=== PATIENT | female | born 1990 | race Caucasian/White ===

== ENCOUNTER 2020-08-29 12:18 | Emergency (ER) | payer SELFPAY ==
[2020-08-29 12:36] VITALS: BP 160/93; PULSE 98; RESP 17; TEMP 36.4; O2SAT 97; BMI 33.6
--- NOTE | 2020-08-29 12:50 | XR_ITS ---
EXAMINATION: XR FOOT, RIGHT CLINICAL INFORMATION: Injury over great toe. COMPARISON: None TECHNIQUE: AP, lateral, and oblique views of the right foot. FINDINGS: There is no visible fracture or bony abnormality involving the right great toe. The soft tissues are unremarkable. XR/XR foot RT min 3V IMPRESSION: Unremarkable right great toe exam.
--- NOTE | 2020-08-29 12:53 | ED_ITS ---
HPI - Extremity Injury (Lower) General Chief Complaint: Extremity Injury, Lower Stated Complaint: toe pain - work injury Time Seen by Provider: 08/29/20 12:48 Source: patient Mode of arrival: ambulatory Limitations: no limitations History of Present Illness HPI Narrative: Struck right foot on solid object 3 days ago at work. Continuing to have pain worsened with weight bearing. MD complaint: foot injury Onset (ago): day(s) Injury: Right: foot Type of Injury: blunt Place: work Severity: moderate Relieving factors: immobilization and rest Exacerbating factors: weight bearing, movement and palpation Context: direct blow Other symptoms: none Related Data Previous Rx's Medication Instructions Recorded ibuprofen 600 mg PO Q8H PRN #10 tab 08/29/20 Allergies Allergy/AdvReac Type Severity Reaction Status Date / Time pollen extracts [POLLEN] Allergy Unknown SNEEZE Unverified 07/24/20 16:14 sulfamethoxazole Allergy Unknown HIVES Unverified 07/24/20 16:14 [From Bactrim DS] trimethoprim Allergy Unknown HIVES Unverified 07/24/20 16:14 [From Bactrim DS] DUST Allergy Unknown SNEEZE Uncoded 07/24/20 16:14 Review of Systems Review of Systems: Yes all other systems are reviewed and are negative Constitutional: Constitutional: Reports no additional constitutional complaints, Denies body ache(s), Denies chills, Denies fever(s), Denies headache(s) and Denies weakness Eyes: Eyes: Reports no additional eye complaints and Denies change in vision ENT: Reports system reviewed and no additional complaints, except as documented, Denies dizziness, Denies headache(s), Denies nasal congestion, Denies nasal discharge and Denies neck pain Cardiovascular: Cardiovascular: Reports no additional cardiovascular complaints, Denies chest pain, Denies leg edema and Denies dyspnea Respiratory: Respiratory: Reports no additional respiratory complaints, Denies cough and Denies dyspnea Gastrointestinal: Gastrointestinal: Reports no additional gastrointestinal complaints, Denies abdominal pain, Denies diarrhea, Denies nausea and Denies vomiting Genitourinary: Genitourinary: Reports no additional female genitourinary complaints and Denies urinary incontinence Musculoskeletal: Musculoskeletal: Reports no additional musculoskeletal complaints, Denies back pain, Reports arthralgias, Reports joint swelling, Denies neck pain, Denies numbness and Denies tingling Integumentary/Breasts: Skin/Breast: Reports system reviewed and no additional complaints, except as docu and Denies rash Neurologic: Reports system reviewed and no additional complaints, except as documented, Denies Abnormal speech present, Denies dizziness, Denies headache(s), Denies numbness, Denies tingling and Denies weakness PMFSH Past Medical History Source: old records reviewed, obtained from family and nursing notes reviewed Medical History No known health problems Social History Social History Advance Directives: No Advance Directives Information Provided: Yes Physical Exam Vital Signs: Vital Signs: Vital Signs Temp Pulse Resp BP Pulse Ox 08/29/20 12:36 97.6 F 98 17 160/93 H 97 Body Mass Index 33.6 Const: General: cooperative, healthy appearing, comfortable and no acute distress Orientation/consciousness: patient oriented x3 Limitations: no limitations HENMT: Head: Yes normal to inspection Ears: hearing grossly normal bilaterally General nose exam: Normal external nose present Face and sinus: Yes normal facial exam Mouth: Normal oral and palatal mucosa present Throat: Yes posterior oropharynx normal Eyes: General: appearance normal, both eyes and all related structures Pupils: Equal, round and reactive pupils present Neck: Neck: Yes normal visual inspection Chest: Chest palpation & inspection: normal inspection of the chest Resp: Effort & Inspection: normal respiratory effort Auscultation: clear to auscultation bilaterally Cardio: Rate: regular rate Rhythm: regular rhythm Peripheral pulses: Peripheral pulses 2+ throughout GI: Inspection: Yes normal to inspection Palpation (GI): Soft to palpation and nontender Auscultation: normal bowel sounds Back/Spine/Pelvis: Thoracic/Lumbar Spine: thoracic and lumbar spine normal to inspection Skin: General skin exam: no rashes or lesions noted Neuro: General: patient oriented x3, no focal motor deficits and normal sensation to monofilament Cranial nerves: Yes Equal, round and reactive pu pils present Cognition (Neuro): normal cognition Speech: No Abnormal speech present Gait exam (Neuro): Normal gait present Motor exam (neuro): 5/5 motor strength present throughout Extrem: General: Yes normal to inspection Right lower extremity: normal to inspection, full ROM, normal capillary refill and foot Details: normal capillary refill, tenderness (dorsal/distal over base of great toe ) Location: of the dorsal foot and of the great toe, toes with normal ROM and no edema; no ecchymosis; no cyanosis, no edema and joint enlargement noted Course Course Course Narrative: Will check imaging 1330- X-ray negative. Likely sprain versus contusion. Patient was placed in a postoperative shoe for comfort. Reviewed worrisome signs and symptoms and when to return to the emergency department. Comfortable discharge home. MDM - Extremity Injury (Lower) MDM Narrative Medical decision making narrative: sprain, contusion, fracture Medical Records Attestation: I reviewed the patient's medical records. Imaging Data foot xray: Attestation: I personally reviewed and interpreted this imaging study as follows: My impression: unremarkable Radiologist's impression: EXAMINATION: XR FOOT, RIGHT CLINICAL INFORMATION: Injury over great toe. COMPARISON: None TECHNIQUE: AP, lateral, and oblique views of the right foot. FINDINGS: There is no visible fracture or bony abnormality involving the right great toe. The soft tissues are unremarkable. XR/XR foot RT min 3V IMPRESSION: Unremarkable right great toe exam. Discharge Plan Discharge Clinical Impression: Sprain of foot Patient Disposition: Home, Self-Care Instructions: Foot Sprain (ED) Additional Instructions: ice, elevation. use shoe for comfort call work [facility] for a follow-up appointment as this is work related injury tel:[phone] Prescriptions: New ibuprofen 600 mg tablet 600 mg PO Q8H PRN (Reason: pain) Qty: 10 RF: 0 Referrals: Physician,None [Primary Care Provider] - 2 days Stand Alone Forms: Work/School Release Interventions: ED Discharge Assessment Last Done: 08/29/20 13:28 Discharge Date/Time: 08/29/20 13:28
== END 2020-08-29 13:28 | disposition home or self-care (01) ==
PROVIDERS: Emergency Provider Emergency Medicine
DX: S93.601A Unspecified sprain of right foot, initial encounter (principal); W22.09XA Striking against other stationary object, initial encounter; Y93.9 Activity, unspecified; Y92.9 Unspecified place or not applicable; Y99.0 Civilian activity done for income or pay
CPT/HCPCS: 73630; 99283

== ENCOUNTER 2024-04-15 18:11 | Emergency (ER) | payer OTHER, SELFPAY ==
--- NOTE | ~2024-04-15 | XR_ITS ---
EXAMINATION: XR CHEST 2 VIEWS CLINICAL INFORMATION: Chest pain. COMPARISON: None. TECHNIQUE: Frontal and lateral views of the chest were obtained. FINDINGS: The heart, great vessels, pulmonary vasculature and mediastinum are normal. The lungs show no focal infiltrate, effusion or pneumothorax. There is no acute osseous abnormality. XR/XR chest 2V IMPRESSION: No active cardiopulmonary disease.
--- NOTE | 2024-04-15 18:12 | ECG_ITS ---
Test Reason : CHEST PAIN Blood Pressure : / mmHG Vent. Rate : 084 BPM Atrial Rate : 084 BPM P-R Int : 158 ms QRS Dur : 100 ms QT Int : 374 ms P-R-T Axes : 039 015 029 degrees QTc Int : 441 ms Normal sinus rhythm with sinus arrhythmia Possible Left atrial enlargement Incomplete right bundle branch block Borderline ECG When compared with ECG of 08-SEP-2015 10:45, Incomplete right bundle branch block is now Present Referred By: Generic ED Physician Electronically Signed By:RADHA CALZADA
[2024-04-15 18:29] VITALS: BP 150/95; PULSE 91; RESP 18; TEMP 36.7; O2SAT 100; BMI 36.0
[2024-04-15 19:20] LABS: MANUAL DIFF FLAG NO
[2024-04-15 19:21] LABS: Basophils Percent Auto 0.2 % (0-2); Eosinophils Percent Auto 0.3 % (0-4); Hematocrit 40.4 % (37.0-47.0); Imm Gran Abs Auto 0.04 X10*3/uL (0.00-0.03); Imm Gran Pct Auto 0.3 % (0.0-0.4); Lymphocytes Absolute Auto 3.5 X10*3/uL (1.2-4.9); Lymphocytes Percent Auto 24.7 % (20-40); Mean Corpuscular HGB Conc 34.7 g/dl (31.0-35.0); Mean Corpuscular Hemoglobin 29.8 pg (27.0-33.0); Mean Platelet Volume 8.8 fL (9.4-12.3); Monocytes Absolute Auto 0.7 X10*3/uL (0.1-1.2); Monocytes Percent Auto 4.8 % (2-11); Neutrophils Percent Auto 69.7 % (45-73); Platelet Count 277 X10*3/uL (160-400); Red Cell Distribution Width 12.8 % (11.0-16.0); White Blood Count 14.3 X10*3/uL (4.8-10.8)
[2024-04-15 19:39] LABS: Alanine Aminotransferase 21 U/L (0-31); Albumin Level 4.3 g/dL (3.5-5.0); Alkaline Phosphatase 58 U/L (39-117); Anion Gap 12 (12-20); Aspartate Amino Transferase 21 U/L (5-31); Bilirubin Total 0.4 mg/dL (0.0-1.0); Blood Urea Nitrogen 9 mg/dL (9-16); Calcium 9.7 mg/dL (8.4-10.2); Carbon Dioxide 23 mmol/L (22-29); Chloride 108 mmol/L (96-108); Creatinine Clr Calc Pharmacy 130.3; Estimated Glomerular Filt Rate > 60; Glucose Random 106 mg/dL (60-115); Potassium 3.6 mmol/L (3.3-5.1); Sodium 139 mmol/L (135-145); Total Protein 7.3 g/dL (6.5-8.0)
[2024-04-15 19:51] LABS: Troponin-I High Sensitivity < 2.7 ng/L (<3.5-17.0)
[2024-04-15 23:15] VITALS: BP 138/84; PULSE 74; PULSE 76; RESP 16; O2SAT 99
--- NOTE | 2024-04-15 23:57 | ED_ITS ---
HPI - Chest Pain General Chief Complaint: Chest Pain Stated Complaint: chest pain Time Seen by Provider: 04/15/24 23:56 Source: patient Mode of arrival: ambulatory Limitations: no limitations History of Present Illness ED Provider: Dr. Brandon Mosquera HPI narrative: 33-year-old female with no significant past medical history who presents emergency department for evaluation of chest pain and left arm tingling this/numbness. Patient states that over the last 2 weeks she has had intermittent chest pain. She states that the pain will last for about 10 minutes she gets about 4 episodes per day. The pain may be related to exertion but can come on at rest as well. Patient points to her left chest when asked to localize the pain. She states the pain is a sharp pain which is worse with breathing. The patient states that she has had increased stress secondary to working 2 jobs. She states that over the last 24 hours the pain is become constant. She has had intermittent tingling and numbness in her left arm. She denied fever, chills, sore throat, vomiting, diarrhea. She states that she has had rhinorrhea secondary to allergies and a cough secondary to allergies. She does have shortness of breath and dyspnea on exertion. She has not gone on any long trips recently. She denies any pain or swelling in her lower extremities. Related Data Previous Rx's ?Medication ?Instructions ?Recorded ibuprofen 600 mg tablet 600 mg PO Q8H PRN pain #10 tabs 08/29/20 Allergies Allergy/AdvReac Type Severity Reaction Status Date / Time pollen extracts [POLLEN] Allergy Unknown SNEEZE Verified 04/15/24 18:32 sulfamethoxazole Allergy Unknown HIVES Verified 04/15/24 18:32 [From Bactrim DS] trimethoprim Allergy Unknown HIVES Verified 04/15/24 18:32 [From Bactrim DS] DUST Allergy Unknown SNEEZE Uncoded 07/24/20 16:14 Review of Systems 2 Review of Systems: Yes all other systems are reviewed and are negative [facility] Past Medical History [facility] Narrative: Social history: She smokes 4 cigarettes per day times many years. She denies alcohol use. She does smoke marijuana daily. Medical History No known health problems Social History Social History Smoked in Last 30 Days: Yes Use of substances other than those prescribed or required for medical reasons: Yes Substance Use Type: Marijuana Advance Directives: No Advance Directives Information Provided: No Do you have a plan to hurt others: No Plan Physical Exam 2 Vital Signs: Vital Signs: Last Vital Signs Temp 98.0 F 04/15/24 18:29 Pulse 74 04/15/24 23:15 Resp 16 04/15/24 23:15 BP 138/84 04/15/24 23:15 Pulse Ox 99 04/15/24 23:15 O2 Del Method Room Air 04/15/24 23:15 BMI result Body Mass Index 36.0 Vital signs were normal Exam: General: Awake, alert in no distress Head: Normocephalic, atraumatic EENT: PERRL, Lids normal, sclera normal, conjunctiva normal, nose normal , ears normal, throat without erythema or exudates Neck: Supple, no adenopathy Lung: breath sounds symmetric, no wheezing, rales or rhonchi Chest: symmetric movement, tenderness with palpation of the left costochondral joints which reproduces her pain Heart: regular rate and rhythm, normal S1, S2 no murmurs or rubs Abdomen: soft, non-tender, nondistended, normal bowel sounds Back: no vertebral tenderness, no CVAT Extremities: no deformities, moves all extremities symmetrically Neuro: Awake, alert, oriented, normal speech, cranial nerves intact, moves all extremities symmetrically Psych: Pleasant, cooperative Medical Decision Making Medical Decision Making MDM Narrative: 33-year-old female with no significant past medical history presents emergency department for evaluation of 2 weeks of intermittent left-sided chest pain, lasting 10 minutes, 3-4 episodes per day, with intermittent left-sided tingling this in numbness and associated shortness of breath, dyspnea on exertion nausea. Patient's pain became constant over the last 24 hours. Vital signs were normal. Physical examination did reveal tenderness palpation of the left costochondral joints. Differential diagnosis: ?Includes but is not limited to myocardial infarction, myocardial ischemia, costochondritis, chest wall pain, pneumonia, pneumothorax, electrolyte abnormalities, anemia Following evaluation was ordered: CBC, CMP, troponin, EKG, chest x-ray Patient was initially treated with the following: Ibuprofen 40 mg orally Course: 00:22 My independent interpretation patient's laboratory evaluation as follows: WBC elevated 14,300. H&H was normal 14 and 40.5. CMP was normal. High sensitive troponin I was below detectable limits. Twelve EKG was unremarkable except for an incomplete right bundle-branch block. Patient's chest x-ray was unremarkable. Given her negative workup and the physical finding of left-sided costochondral pain, my impression is the patient has costochondritis I did discuss this with her. She was advised to take ibuprofen 400 mg once a day for the next 5 days then as needed for pain. She was also advised to take Tylenol as directed. She was given printed and verbal instructions and discharged home. Admission/Observation Consideration of admission/observation: Escalation of care including admission/observation considered Lab Data MDM Lab Attestation statement: I reviewed the patient's lab results. 04/15/24 19:15 04/15/24 19:15 Labs: Lab Results 04/15/24 Range/Units 19:15 WBC 14.3 H (4.8-10.8) X10*3/uL RBC 4.70 (4.20-5.50) X10*6/uL Hgb 14.0 (12.0-16.0) g/dl Hct 40.4 (37.0-47.0) % MCV 86.0 (80.0-98.0) fL MCH 29.8 (27.0-33.0) pg MCHC 34.7 (31.0-35.0) g/dl RDW 12.8 (11.0-16.0) % Plt Count 277 (160-400) X10*3/uL MPV 8.8 L (9.4-12.3) fL Immature Gran % (Auto) 0.3 (0.0-0.4) % Neut % (Auto) 69.7 (45-73) % Lymph % (Auto) 24.7 (20-40) % [place] % (Auto) 4.8 (2-11) % Eos % (Auto) 0.3 (0-4) % Baso % (Auto) 0.2 (0-2) % Lymph # (Auto) 3.5 (1.2-4.9) X10*3/uL [place] # (Auto) 0.7 (0.1-1.2) X10*3/uL Eos # (Auto) 0.0 (0.0-0.4) X10*3/uL Baso # (Auto) 0.0 (0.0-0.2) X10*3/uL Abs Immat Gran (auto) 0.04 H (0.00-0.03) X10*3/uL Absolute Neuts (auto) 10.0 H (2.0-8.3) x10*3/uL Absolute Nucleated RBC 0.000 (0.0-0.012) X10*3/uL Nucleated RBC % (auto) 0.0 (0.0-0.2) /100WBC Sodium 139 (135-145) mmol/L Potassium 3.6 (3.3-5.1) mmol/L Chloride 108 (96-108) mmol/L Carbon Dioxide 23 (22-29) mmol/L Anion Gap 12 (12-20) BUN 9 (9-16) mg/dL Creatinine 0.70 (0.5-1.4) mg/dL Estim Creat Clear Calc 130.3 Estimated GFR > 60 Random Glucose 106 (60-115) mg/dL Calcium 9.7 (8.4-10.2) mg/dL Total Bilirubin 0.4 (0.0-1.0) mg/dL AST 21 (5-31) U/L ALT 21 (0-31) U/L Alkaline Phosphatase 58 (39-117) U/L Troponin I High Sens < 2.7 (<3.5-17.0) ng/L Total Protein 7.3 (6.5-8.0) g/dL Albumin 4.3 (3.5-5.0) g/dL Independent Interpretation I performed an independent interpretation of an: EKG and Plain X-Ray Interpretation: My interpretation patient's one-view chest x-ray is as follows: No acute disease My independent interpretation patient's 12 EKG done at 18:24 hours is as follows: Normal sinus rhythm rate of 84, normal [place] interval 258 milliseconds, prolonged QTC interval of 100 milliseconds, normal QTC of 441 milliseconds, RR prime V1 consistent with incomplete right bundle-branch block, no ST segment elevation, no ST segment depression, inverted T-waves V1 and V2, no PACs, no PVCs. Radiology Impression Discussion of test interpretation with radiology: I have reviewed the radiologist's reading. Radiologist Impression: XR chest 2V IMPRESSION: No active cardiopulmonary disease. Dictated By: Sam Gates MD Chronic Conditions Patient?s care impacted by: Other (Tobacco use disorder) Discharge Plan Discharge Clinical Impression: Acute costochondritis Patient Disposition: Home, Self-Care Instructions: Costochondritis (ED) Additional Instructions: Your complete blood count reveal an elevated white blood cell, this is nonspecific and I do not think it is related to chest pain. You were not anemic. Your comprehensive metabolic panel was normal. Your high sensitive troponin I was below detectable limits, this is very reassuring and suggests that your chest pain is not secondary to heart damage or heart attack. Your EKG was unremarkable and did not show any evidence for heart attack. Your chest x-ray was normal. On your examination you do have tenderness with palpation over the rib joints on the left side of your chest. This is caused by inflammation in these joints and this is called costochondritis. Take ibuprofen 200 mg pills, 2 pills every 6 hours for 5 days then as needed for pain. You can also take Tylenol (acetaminophen) 500 mg pills, 2 pills every 6 hours as needed for pain . Use a heating pad on low for 15 minutes 4 times a day to your left chest, this should also improve your symptoms. Follow-up with your doctor in 2 days. Please return to the emergency department if your symptoms get worse or if you develop any symptoms that are concerning to you. Prescriptions: No Action ibuprofen 600 mg tablet 600 mg PO Q8H PRN (Reason: pain) Qty: 10 0RF Print Language: Croatian
[2024-04-16] MEDS: Ibuprofen 400 MG TABLET PO (00:33)
[2024-04-16 00:38] VITALS: BP 138/84; PULSE 74; RESP 16; TEMP 36.6; O2SAT 99
== END 2024-04-16 00:39 | disposition home or self-care (01) ==
PROVIDERS: Emergency Provider Emergency Medicine Emergency Medical Services
DX: M94.0 Chondrocostal junction syndrome [Tietze] (principal); R20.2 Paresthesia of skin; F17.210 Nicotine dependence, cigarettes, uncomplicated; F12.90 Cannabis use, unspecified, uncomplicated
CPT/HCPCS: 36415; 71046; 80053; 84484; 85025; 93005; 99283; 99285

== ENCOUNTER → 2024-04-15 18:12 | Outpatient (BNV) | payer OTHER, SELFPAY | PROVIDERS: Emergency Provider Emergency Medicine Emergency Medical Services; Visit Provider Internal Medicine | DX: R07.9 Chest pain, unspecified (principal); I45.19 Other right bundle-branch block; R94.31 Abnormal electrocardiogram [ECG] [EKG] | CPT/HCPCS: 93010 ==